=== PATIENT | male | born 1960 | race Caucasian/White ===

== ENCOUNTER 2016-11-08 22:08 | Emergency (ER) | payer OTHER ==
[2016-11-09] MEDS ORDERED: KETOROLAC TROMETHAMINE INJ/PF 30 MG/1 ML SDV IV ONE (04:46)
[2016-11-09 04:47] LABS: ABSOLUTE BASOPHILS # (AUTO) 0.1 10^3/uL (0.0-0.2); ABSOLUTE EOSINOPHILS # (AUTO) 0.2 10^3/uL (0.0-0.6); ABSOLUTE LYMPHOCYTES (AUTO) 2.6 10^3/uL (0.5-4.7); ABSOLUTE MONOCYTES (AUTO) 1.2 10^3/uL (0.1-1.4); ABSOLUTE NEUT (AUTO) 9.1 10^3/uL (1.7-8.2); BASOPHILS % (AUTO) 0.7 % (0-2); EOSINOPHILS % (AUTO) 1.5 % (0-6); HEMATOCRIT 47.9 % (37.9-51.0); HGB HCT DIFFERENCE 3.1; LYMPHOCYTES % (AUTO) 19.5 % (13-45); MEAN CORPUSCULAR HEMOGLOBIN 32.6 pg (27.0-33.4); MEAN CORPUSCULAR HGB CONC 35.5 g/dL (32.0-36.0); MEAN CORPUSCULAR VOLUME 92 fl (80-97); RED BLOOD COUNT 5.22 10^6/uL (4.35-5.55); RED CELL DISTRIBUTION WIDTH 12.8 % (11.5-14.0); SEGMENTED NEUTROPHILS % (AUTO) 69.3 % (42-78); WHITE BLOOD COUNT 13.2 10^3/uL (4.0-10.5)
[2016-11-09 05:04] LABS: ALANINE AMINOTRANSFERASE 25 U/L (21-72); ALBUMIN 4.9 g/dL (3.5-5.0); ALKALINE PHOSPHATASE 74 U/L (38-126); ANION GAP 17 (5-19); ASPARTATE AMINO TRANSFERASE 24 U/L (17-59); BILIRUBIN,DIRECT 0.4 mg/dL (0.0-0.4); BILIRUBIN,TOTAL 0.8 mg/dL (0.2-1.3); BLOOD UREA NITROGEN 11 mg/dL (7-20); CALCIUM 10.1 mg/dL (8.4-10.2); CARBON DIOXIDE 22 mmol/L (22-30); CHLORIDE 104 mmol/L (98-107); CREATININE RESULT 0.94 mg/dL (0.52-1.25); GLUCOSE 101 mg/dL (75-110); LIPASE 90.2 U/L (23-300); POTASSIUM 4.1 mmol/L (3.6-5.0); TOTAL PROTEIN 8.2 g/dL (6.3-8.2)
[2016-11-09 05:05] LABS: APPEARANCE,URINE SLIGHTLY-CLOUDY; BILIRUBIN,URINE NEGATIVE (NEGATIVE); GLUCOSE, URINE NEGATIVE (NEGATIVE); KETONES,URINE NEGATIVE (NEGATIVE); LEUKOCYTE ESTERASE,URINE NEGATIVE (NEGATIVE); NITRITE,URINE NEGATIVE (NEGATIVE); PROTEIN,URINE NEGATIVE (NEGATIVE); URINE SPECIFIC GRAVITY 1.013; UROBILINOGEN,URINE NEGATIVE mg/dL (<2.0)
--- NOTE | 2016-11-09 05:26 | ER Document Report ---
[facility]/ <SHELBY REBOLLAR - Last Filed: 11/09/16 09:01> - General Mode of Arrival: Ambulatory Information source: Patient TRAVEL OUTSIDE OF THE [place] IN LAST 30 DAYS: No <LARISA FRANCOIS - Last Filed: 11/14/16 07:22> - General Chief Complaint: Abdominal Pain Stated Complaint: ABDOMINAL PAIN Notes: Pt is a 56 year old male who presents to the ER today for abdominal pain with nausea that began 6 days ago. He states that his pain is mostly in his upper abdomen and wraps around to his left upper abdomen and side. He says his entire abdomen has been tender. He denies any vomiting. He admits that his bowels have "been funky" over the past 6 days as well, having very small stools with mucous which is not normal for him. He denies any diarrhea or blood in his stool, fever , chills. He has had surgery to remove one of his kidneys and appendectomy. He is able to pass gas. He denies history of pancreatitis or gallbladder disease. (LARISA FRANCOIS) - Related Data Allergies/Adverse Reactions: No Known Allergies Allergy (Unverified 02/21/16 18:53) Past Medical History - General Information source: Patient - Social History Smoking Status: Unknown if Ever Smoked Family History: Reviewed & Not Pertinent Patient has suicidal ideation: No Patient has homicidal ideation: No - Past Medical History Cardiac Medical History: Reports: Hx Hypercholesterolemia, Hx Hypertension Renal/ Medical History: Denies: Hx Peritoneal Dialysis GI Medical History: Reports: Hx Gastroesophageal Reflux Disease Past Surgical History: Reports: Hx Appendectomy, Hx Kidney (Renal Surgery) - right kidney removal, Hx Orthopedic Surgery <LARISA FRANCOIS - Last Filed: 11/14/16 07:22> Review of Systems - Review of Systems Constitutional: No symptoms reported EENT: No symptoms reported Cardiovascular: No symptoms reported Respiratory: No symptoms reported Gastrointestinal: See HPI Genitourinary: No symptoms reported Male Genitourinary: No symptoms reported Musculoskeletal: No symptoms reported Skin: No symptoms reported Hematologic/Lymphatic: No symptoms reported Neurological/Psychological: No symptoms reported <LARISA FRANCOIS - Last Filed: 11/14/16 07:22> Physical Exam <SHELBY REBOLLAR - Last Filed: 11/09/16 09:01> <LARISA FRANCOIS - Last Filed: 11/14/16 07:22> - Vital signs Vitals: Temp Pulse Resp BP Pulse Ox 97.7 F 82 20 157/96 H 97 11/08/16 23:25 11/08/16 23:25 11/08/16 23:25 11/08/16 23:25 11/08/16 23:25 - Notes Notes: PHYSICAL EXAMINATION: GENERAL: obviously uncomfortable, but in no acute distress. HEAD: Atraumatic, normocephalic. EYES: Pupils equal round and reactive to light, extraocular movements intact, sclera anicteric, conjunctiva are normal. NECK: Normal range of motion, supple without lymphadenopathy LUNGS: CTAB and equal. No wheezes rales or rhonchi. HEART: Regular rate and rhythm without murmurs ABDOMEN: Soft, epigastric, LUQ tenderness. No guarding, no rebound BACK: no vertebral tenderness, normal ROM GI/: right CVA tenderness EXTREMITIES: Normal range of motion, no pitting edema. No cyanosis. NEUROLOGICAL: Cranial nerves grossly intact. Normal sensory/motor exams. PSYCH: Normal mood, normal affect. SKIN: Warm, Dry, normal turgor, no rashes or lesions noted (LARISA FRANCOIS) Course - Laboratory Result Diagrams: 11/09/16 04:30 11/09/16 04:30 <SHELBY REBOLLAR - Last Filed: 11/09/16 09:01> - Laboratory Result Diagrams: 11/09/16 04:30 11/09/16 04:30 <LARISA FRANCOIS - Last Filed: 11/14/16 07:22> - Re-evaluation Re-evalutation: 11/09/16 05:45 The oral contrast is causing some increased discomfort in the upper abdomen but he is willing to still drink it for the CT scan. 11/09/16 07:15 Care has been handed over to Shelby Rebollar PA-C 11/09/16 08:30 WBC is elevated mildly at 13.2. Pt has nodules on adrenal gland, mild emphysema and hemangioma of the liver. Pt informed of these findings and will be discharged home with symptomatic medication for epigastric abd pain. Pt urged to follow up with his pcp about findings on CT scan and knows he may have an MRI to further evaluate. 11/14/16 07:21 (LARISA FRANCOIS) - Vital Signs Vital signs: Temp Pulse Resp BP Pulse Ox 98.7 F 71 17 134/98 H 98 11/09/16 08:54 11/09/16 08:54 11/09/16 08:54 11/09/16 08:54 11/09/16 08:54 - Laboratory Laboratory results interpreted by me: 11/09/16 11/09/16 04:30 04:30 WBC 13.2 H Absolute Neutrophils 9.1 H Urine Ascorbic Acid 20 H Discharge <SHELBY REBOLLAR - Last Filed: 11/09/16 09:01> <LARISA FRANCOIS - Last Filed: 11/14/16 07:22> - Discharge Clinical Impression: Abdominal pain Qualifiers: Abdominal location: epigastric Qualified Code(s): R10.13 - Epigastric pain Condition: Good Disposition: HOME, SELF-CARE Instructions: Abdominal Pain ([facility]), Bulk Laxatives, Antinausea Medication ([facility]) , Reflux Disease (GERD) ([facility]) Additional Instructions: Please be sure to follow-up with your primary care physician regarding your CT results for possible additional imaging. Prescriptions: Famotidine [Pepcid 20 mg Tablet] 20 mg PO DAILY #12 tablet Ondansetron [Zofran Odt 4 mg Tablet] 1 - 2 tab PO Q4H PRN #15 tab.rapdis PRN Reason: For Nausea/Vomiting Sucralfate [Carafate 1 gm Tablet] 1 gm PO ACHS #120 tablet Forms: Return to Work Referrals: SANJAY CRESPO MD [ACTIVE STAFF] - Follow up in 3-5 days
[2016-11-09] MEDS ORDERED: ONDANSETRON HCL INJ/PF 4 MG/2 ML SDV IV ONE (05:45)
[2016-11-09 08:56] VITALS: BP 134/98
== END 2016-11-09 09:15 | disposition home or self-care (01) ==
LOC: ER 22:08
DX: R10.12 Left upper quadrant pain (principal); R10.817 Generalized abdominal tenderness; R11.0 Nausea; R19.4 Change in bowel habit; I10 Essential (primary) hypertension; D72.829 Elevated white blood cell count, unspecified; J43.9 Emphysema, unspecified; D18.03 Hemangioma of intra-abdominal structures; E27.8 Other specified disorders of adrenal gland; Z90.49 Acquired absence of other specified parts of digestive tract; Z90.5 Acquired absence of kidney
CPT/HCPCS: 99284; 96374; 96375; 36415; 83690; 85025; 80053; 81001; 74177; J1885; J2405

== ENCOUNTER → 2017-05-31 | Outpatient (CLI) | payer OTHER ==
--- NOTE | 2017-05-31 14:19 | RADIOLOGY REPORT (SQ) ---
EXAM DESCRIPTION: WRIST LEFT 3 VIEWS COMPLETED DATE/TIME: 05/31/2017 1:48 pm REASON FOR STUDY: PAIN IN LEFT WRIST M25.532 PAIN IN LEFT WRIST COMPARISON: None. NUMBER OF VIEWS: Three views. TECHNIQUE: AP, lateral, and oblique radiographic images acquired of the left wrist. LIMITATIONS: None. FINDINGS: MINERALIZATION: Normal. BONES: No acute fracture or dislocation. No worrisome bone lesions. Normal alignment. SOFT TISSUES: Extensive degenerative joint disease is present at the 1st carpometacarpal joint OTHER: No other significant finding. IMPRESSION: Degenerative joint disease. TECHNICAL DOCUMENTATION: JOB ID: [id number] [employer]- All Rights Reserved
== END ==
LOC: OD 13:38
PROVIDERS: ATTEND Physician Assistant
DX: M25.532 Pain in left wrist (principal)